=== PATIENT | female | born 1970 | race Caucasian/White ===

== ENCOUNTER → 2017-08-04 | Outpatient (CLI) | payer OTHER ==
--- NOTE | 2017-08-04 13:15 | DIAGNOSTIC IMAGING REPORT ---
CHEST 2 VIEWS ROUTINE HISTORY: 47 years-old Female DESCRIPTION AND INFLUENZA acute chest tightness with influenza COMPARISON: Chest radiograph 12/10/2012 TECHNIQUE: PA and lateral views of the chest FINDINGS: Cardiomediastinal and hilar silhouettes are within normal limits. There is no pneumothorax, pleural effusion, focal airspace consolidation or overt pulmonary edema. The bones of the chest appear grossly intact. IMPRESSION: No acute process. The above report was generated using voice recognition software. It may contain grammatical, syntax or spelling errors. Electronically signed by: Nathen Medellin M.D. 08/04/2017 1:13 PM Dictated Date/Time: 08/04/2017 1:12 PM
== END | disposition home or self-care (01) ==
LOC: C.RAD 12:41
PROVIDERS: ATTEND Family Medicine
DX: J11.1 Influenza due to unidentified influenza virus with other respiratory manifestations (principal)

== ENCOUNTER 2021-12-14 16:42 | Inpatient (IN) ==
[2021-12-14] MEDS ORDERED: SODIUM CHLORIDE 0.9% 1000ML 1,000 ML IV STA (17:04)
[2021-12-14] MEDS ORDERED: MoRPHine SULFATE 4 MG/ML 1 ML CARP\\VIAL IV STA (17:04)
[2021-12-14] MEDS ORDERED: ONDANSETRON INJ 2 MG/ML 2 ML VIAL IV STA (17:04)
--- NOTE | 2021-12-14 17:09 | Emergency Department Note ---
Impression & Plan Lower abdominal pain, Rectal bleeding, Colitis ED Provider Note NAME: MICHAEL PENALOZA AGE: 51 SEX: F : 1970 ARRIVES VIA: Walk-In INFORMANT: [Patient][family] ED PROVIDER(S): [Sahil Buckley MD] CHIEF COMPLAINT: GI bleeding HISTORY OF PRESENT ILLNESS: Patient is a 51-year-old female who presents with abdominal pain and rectal bleeding. She states that around 14 hours ago, she awoke with abdominal cramping. The pain was as bad as a 7/10. It was diffuse and radiated to the back. About an hour later she had a bowel movement that was soft. Since the first bowel movement, she has had BMs that have just been blood. She has gone multiple times today. She continues with the abdominal cramping. She feels nauseated and did actually take a Compazine today to help with the nausea. She has had some urinary urgency/frequency but no burning. There has been no fever, chills, cough or congestion. No shortness of breath. No recent antibiotic use. No sick contacts or suspicious food eaten. The patient has never had a colonoscopy, she is scheduled this year in April for her first. REVIEW OF SYSTEMS: See HPI for pertinent positives and negatives. A total of ten systems were reviewed and were otherwise negative. PMHx/PSHx: See Below SOCIAL HISTORY: See Below. PHYSICAL EXAM: GENERAL: Patient is in no acute distress. HEENT: No acute trauma, normocephalic atraumatic, mucous membranes moist, no nasal congestion, no scleral icterus. NECK: No stridor, no adenopathy, no meningismus, trachea is midline. LUNGS: Clear to auscultation bilaterally, no wheeze, no rhonchi, breath sounds equal. HEART: Without murmurs gallops or rubs, regular rate and rhythm. ABDOMEN: Soft, moderately diffusely tender, bowel sounds positive, no peritonitis. EXTREMITIES: No cyanosis or edema, full range of motion of all the joints without pain or difficulty, no signs for acute trauma. NEUROLOGIC: Oriented x 3, no acute motor or sensory deficits, no focal weakness. SKIN: No rash, no jaundice, no diaphoresis. DIFFERENTIAL DIAGNOSIS: Diverticulosis, AVM, coagulopathy, colitis, inflammatory bowel disease, malignancy, Irasema-Rankin tear, esophagitis, peptic ulcer disease, variceal bleed, gastritis, epistaxis, fissure, hemorrhoids, as well as other pathologies. EMERGENCY DEPARTMENT COURSE/PROCEDURES: MEDICAL DECISION MAKING: There is no leukocytosis or worrisome anemia. There is a normal platelet count. No renal failure or significant electrolyte abnormality. Lactic acid level is not elevated making bowel ischemia less likely. There is no concerning liver enzyme elevation. No evidence for pancreatitis. Urinalysis does not show infection. COVID test was negative. Abdominal and pelvis CT shows a colitis. No bowel obstruction, no free air. The patient was ordered for stool bio fire testing, she has not yet been able to provide a sample. The patient received IV saline, she was given IV Zofran, IV morphine, she received IV Tylenol. The patient presents with rectal bleeding. She has colitis. This explains the rectal bleeding of course. The patient is going to be hospitalized. Her hemoglobin can be followed, hopefully, the bleeding will spontaneously resolve. Treatment may be adjusted based on her stool bio fire results. I spoke with the patient and case management. The on-call hospitalist was consulted. Past Med/Surg History Medical History (Updated 12/15/21 @ 01:16 by Sahil Buckley MD) Acute low back pain Anxiety (12/10/12) Arthritis Blood clot in vein IN LEFT JUGULAR AND LEFT ARM (REASON FOR ELIQUIS) RECENTLY DX Breast cancer RT (CHEMO TREATMENT) Cervical spinal stenosis Encounter for pre-operative examination HTN (hypertension) Hypertension Neuropathy Secondary amenorrhea Spinal stenosis (12/10/12) Temporomandibular joint disorder WEARS BITE GUARD Urinary incontinence Surgical History Family history of reaction to anesthesia FATHER-"MEAN WAKING UP AFTER ANESTHESIA" H/O breast biopsy RT History of vascular access device LEFT History of vascular access device right side after left discontinued due to clot [place] teeth removed Family History Father Hypertension Thyroid disorder Cancer bladder cancer Mother Hypertension Daughter No problems noted. Son No problems noted. 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 Other Information That Helps Us Care for You: No Feels Safe at Home: Yes Safety Concerns: Feels Safe At This Time Assistive Devices: Glasses Allergies Allergies Allergy/AdvReac Type Severity Reaction Status Date / Time Penicillins Allergy Intermediate HIVES A Verified 12/14/21 17:44 CHILD Home Meds Home Medications Medication Instructions Recorded Confirmed lisinopril 2.5 mg tablet 2.5 mg PO QAM 07/01/19 12/14/21 acetaminophen 500 mg tablet 1,000 mg PO Q6H PRN 12/14/21 12/14/21 (Tylenol Extra Strength) Results & Data (ED) Vital Signs Vital Signs - 24 hr 12/14/21 16:49 12/14/21 17:48 12/14/21 19:30 Temperature 36.5 C Temperature Source Temporal Artery Scan Pulse Rate 90 Pulse Rate [Finger] 71 62 Respiratory Rate 18 22 16 Respiratory Effort / Characteristics Non-Labored Non-Labored Spontaneous Respiratory Depth Normal Normal Respiratory Pattern Regular Blood Pressure 171/99 H Blood Pressure [Left Arm] 141/90 H 153/79 H Blood Pressure Mean 123 Blood Pressure Mean [Left Arm] 107 103 Blood Pressure Position [Left Arm] Lying Pulse Oximetry 99 98 99 Oxygen Delivery Method Room Air Room Air Room Air Sepsis Recent Fever Within 48 Hours No Sepsis New/Unexplained Change in Mental Status No Sepsis Action Taken by Nursing No Action Required Home Medications Current Medication List: was personally reviewed by me Laboratory Data Attestation: I reviewed the patient's lab results. Result diagrams: 12/14/21 17:34 12/14/21 17:34 Lab Results 12/14/21 12/14/21 12/14/21 Range/Units 17:05 17:15 17:34 WBC (4.8-10.8) K/uL RBC (4.2-5.4) M/uL Hgb (12.0-16.0) g/dL Hct (37-47) % MCV (80-100) fL MCH (25-34) pg MCHC (32-36) g/dL RDW Std Deviation (36.4-46.3) fL RDW Coeff of [place] (11.5-14.5) % Plt Count (130-400) K/uL MPV (7.4-10.4) fL Immature Gran % (Auto) % Neut % (Auto) % Lymph % (Auto) % Wise % (Auto) % Eos % (Auto) % Baso % (Auto) % Neut # (Auto) (1.4-6.5) K/uL Lymph # (Auto) (1.2-3.4) K/uL Wise # (Auto) (0.11-0.59) K/uL Eos # (Auto) (0-0.5) K/uL Baso # (Auto) (0-0.2) K/uL Immature Gran # (Auto) (0.00-0.02) K/uL Sodium (136-145) mmol/L Potassium (3.5-5.1) mmol/L Chloride (98-107) mmol/L Carbon Dioxide (21-32) mmol/L Anion Gap (3-11) BUN (6-23) mg/dl Creatinine (0.6-1.2) mg/dl Est Cr Clr Drug Dosing ml/min Est GFR ( Amer) ml/min Est GFR (Non-Af Amer) ml/min BUN/Creatinine Ratio (10-20) Glucose (70-99(Fasting)) mg/dl Lactate (0.4-2.0) mmol/L Calcium (8.5-10.1) mg/dl Total Bilirubin (0.2-1.0) mg/dl AST (13-39) U/L ALT (7-52) U/L Alkaline Phosphatase (34-104) U/L Total Protein (6.0-8.3) gm/dl Albumin (3.4-5.0) gm/dl Globulin (2.5-4.0) gm/dl Albumin/Globulin Ratio (0.9-2) Lipase (11-82) U/L Urine Color Yellow Urine Appearance Clear (Clear) Urine pH 5.0 (4.5-7.5) Ur Specific [place] 1.006 (1.000-1.030) Urine Protein Negative (Negative) Urine Glucose (UA) Negative (Negative) Urine Ketones Negative (Negative) Urine Blood 1+ H (Negative) Urine Nitrite Negative (Negative) Urine Bilirubin Negative (Negative) Urine Urobilinogen Negative (Negative) Ur Leukocyte Esterase Negative (Negative) Urine WBC (Auto) 0 (0-5) /hpf Urine RBC (Auto) 0-4 (0-4) /hpf U Hyaline Cast (Auto) 0 (0-5) /lpf U Epithel Cells (Auto) 0-5 (0-5) /lpf Urine Bacteria (Auto) Negative (Negative) SARS-CoV-2, RNA, NAAT NEGATIVE (NEGATIVE) Blood Type B Positive Antibody Screen NEGATIVE 12/14/21 12/14/21 12/14/21 Range/Units 17:34 17:34 17:34 WBC 10.62 (4.8-10.8) K/uL RBC 4.99 (4.2-5.4) M/uL Hgb 14.4 (12.0-16.0) g/dL Hct 44.3 (37-47) % MCV 88.8 (80-100) fL MCH 28.9 (25-34) pg MCHC 32.5 (32-36) g/dL RDW Std Deviation 47.3 H (36.4-46.3) fL RDW Coeff of [place] 14.6 H (11.5-14.5) % Plt Count 281 (130-400) K/uL MPV 11.7 H (7.4-10.4) fL Immature Gran % (Auto) 0.2 % Neut % (Auto) 72.7 % Lymph % (Auto) 16.2 % Wise % (Auto) 9.8 % Eos % (Auto) 0.8 % Baso % (Auto) 0.3 % Neut # (Auto) 7.73 H (1.4-6.5) K/uL Lymph # (Auto) 1.72 (1.2-3.4) K/uL Wise # (Auto) 1.04 H (0.11-0.59) K/uL Eos # (Auto) 0.08 (0-0.5) K/uL Baso # (Auto) 0.03 (0-0.2) K/uL Immature Gran # (Auto) 0.02 (0.00-0.02) K/uL Sodium 140 (136-145) mmol/L Potassium 3.7 (3.5-5.1) mmol/L Chloride 105 (98-107) mmol/L Carbon Dioxide 26 (21-32) mmol/L Anion Gap 9 (3-11) BUN 13 (6-23) mg/dl Creatinine 1.05 (0.6-1.2) mg/dl Est Cr Clr Drug Dosing 80.8 ml/min Est GFR ( Amer) 72.2 ml/min Est GFR (Non-Af Amer) 62.3 ml/min BUN/Creatinine Ratio 12.4 (10-20) Glucose 98 (70-99(Fasting)) mg/dl Lactate 1.1 (0.4-2.0) mmol/L Calcium 10.2 H (8.5-10.1) mg/dl Total Bilirubin 0.6 (0.2-1.0) mg/dl AST 21 (13-39) U/L ALT 22 (7-52) U/L Alkaline Phosphatase 101 (34-104) U/L Total Protein 7.8 (6.0-8.3) gm/dl Albumin 4.9 (3.4-5.0) gm/dl Globulin 2.9 (2.5-4.0) gm/dl Albumin/Globulin Ratio 1.7 (0.9-2) Lipase 23 (11-82) U/L Urine Color Urine Appearance (Clear) Urine pH (4.5-7.5) Ur Specific [place] (1.000-1.030) Urine Protein (Negative) Urine Glucose (UA) (Negative) Urine Ketones (Negative) Urine Blood (Negative) Urine Nitrite (Negative) Urine Bilirubin (Negative) Urine Urobilinogen (Negative) Ur Leukocyte Esterase (Negative) Urine WBC (Auto) (0-5) /hpf Urine RBC (Auto) (0-4) /hpf U Hyaline Cast (Auto) (0-5) /lpf U Epithel Cells (Auto) (0-5) /lpf Urine Bacteria (Auto) (Negative) SARS-CoV-2, RNA, NAAT (NEGATIVE) Blood Type Antibody Screen Administered Medications Dextrose/Sodium Chloride (D5w And 1/2nss) 1,000 mls @ 125 mls/hr IV .Q8H BARRETT Stop: 01/13/22 22:30 Last Admin: 12/14/21 23:25 Dose: 125 mls/hr Documented by: [id number] Famotidine 20 mg/ Syringe 5 mls @ 2.5 mls/min IV BID BARRETT Stop: 01/13/22 22:30 Last Admin: 12/14/21 23:25 Dose: 2.5 mls/min Documented by: [id number] Discontinued Medications Acetaminophen (Acetaminophen 1000 Mg/100 Ml Iv) 1,000 mg IV NOW STA Stop: 12/14/21 19:57 Last Admin: 12/14/21 20:01 Dose: 1,000 mg Documented by: [id number] Sodium Chloride (Nss 1000ml) 1,000 mls @ 999 mls/hr IV .Q1H1M STA Stop: 12/14/21 18:04 Last Infusion: 12/14/21 18:47 Dose: 0 mls/hr Documented by: [id number] Admin: 12/14/21 17:42 Dose: 999 mls/hr Documented by: [id number] Ioversol (Optiray 320 100ml) 94 ml IV ONCE ONE Stop: 12/14/21 18:50 Last Admin: 12/14/21 18:49 Dose: 94 ml Documented by: [id number] Morphine Sulfate (Morphine Sulfate 4 Mg/Ml 1 Ml Carp\\Vial) 4 mg IV NOW STA Stop: 12/14/21 17:05 Last Admin: 12/14/21 17:44 Dose: 4 mg Documented by: [id number] Ondansetron HCl (Ondansetron Inj 2 Mg/Ml 2 Ml Vial) 4 mg IV NOW STA Stop: 12/14/21 17:05 Last Admin: 12/14/21 17:43 Dose: 4 mg Documented by: [id number] Imaging Data Radiologist's Impression: Abdomen/Pelvis CT 12/14/21 17:[address] WITH IV CONTRAST CT DOSE: 1174.33 mGy.cm HISTORY: lower abd pain, bleeding rectally TECHNIQUE: Multiaxial CT images of the abdomen and pelvis were performed following the use of intravenous contrast. A dose lowering technique was utilized adhering to the principles of ALARA. COMPARISON STUDY: Abdomen and pelvis CT 11/05/2021. FINDINGS: The lung bases are clear. No pneumoperitoneum. No pneumatosis. No fractures within the visualized osseous structures. [id number] circumferential thickening within the sigmoid colon with mild pericolonic fat stranding. This is consistent with a nonspecific colitis. No perforation or abscess identified. No evidence for bowel obstruction. Normal appendix. The major mesenteric vessels appear patent. Hepatic steatosis. The gallbladder, pancreas, spleen, adrenal glands, and kidneys are unremarkable. Degenerative changes noted within the lumbar spine. A 4 mm nodule within the left upper quadrant on image 134 remains stable. This favors a small accessory spleen. Normal caliber abdominal aorta. Trace pelvic free fluid. The bladder, uterus, bilateral adnexa are unremarkable. IMPRESSION: Mild to moderate circumferential thickening of the sigmoid colon with mild pericolonic fat stranding. This is consistent with a nonspecific colitis. This favors an infectious or inflammatory process. ACT 112: Negative or not required by law. Electronically signed by: Michael Cantu M.D. 12/14/2021 7:33 PM Discharge Plan Visit Data Chief Complaint: GI Bleed Stated Complaint: BLOOD IN URINE, BACK PAIN ED Provider: Sahil Buckley Discharge Problem: Lower abdominal pain, Rectal bleeding, Colitis Patient Disposition: Admitted As Inpatient Condition: Fair Discharge Instructions Interventions: ED Discharge Assessment Last Done: 12/14/21 21:45
[2021-12-14 17:27] LABS: Appearance Urine Clear (Clear); Bacteria Urine Automated Negative (Negative); Bilirubin Urine Negative (Negative); Blood Urine 1+ (Negative); Cast Urine Automated 0 /lpf (0-5); Color Urine Yellow; Epithelial Cell Urine Auto 0-5 /lpf (0-5); Glucose Urine UA Negative (Negative); Ketones Urine Negative (Negative); Leukocyte Esterase Urine Negative (Negative); Nitrite Urine Negative (Negative); Protein Urine Negative (Negative); RBC Urine Automated 0-4 /hpf (0-4); Specific Gravity Urine 1.006 (1.000-1.030); Urobilinogen Urine Negative (Negative); WBC Urine Automated 0 /hpf (0-5)
[2021-12-14 17:48] LABS: Basophils # (auto) 0.03 K/uL (0-0.2); Basophils % (auto) 0.3 %; Eosinophils # (auto) 0.08 K/uL (0-0.5); Eosinophils % (auto) 0.8 %; Hematocrit (blood only) 44.3 % (37-47); Hemoglobin 14.4 g/dL (12.0-16.0); Immature Granulocytes # (auto) 0.02 K/uL (0.00-0.02); Immature Granulocytes % (auto) 0.2 %; Lymphocytes # (auto) 1.72 K/uL (1.2-3.4); Lymphocytes % (auto) 16.2 %; Mean Corpuscular Hemoglobin 28.9 pg (25-34); Mean Corpuscular Hgb Conc 32.5 g/dL (32-36); Mean Corpuscular Volume 88.8 fL (80-100); Mean Platelet Volume 11.7 fL (7.4-10.4); Monocytes # (auto) 1.04 K/uL (0.11-0.59); Monocytes % (auto) 9.8 %; Neutrophils # (auto) 7.73 K/uL (1.4-6.5); Neutrophils % (auto) 72.7 %; Platelet Count 281 K/uL (130-400); RDW Coefficient of Variation 14.6 % (11.5-14.5); RDW Standard Deviation 47.3 fL (36.4-46.3); Red Blood Count 4.99 M/uL (4.2-5.4); White Blood Count 10.62 K/uL (4.8-10.8)
[2021-12-14 18:07] LABS: Albumin Globulin Ratio 1.7 (0.9-2); Albumin Level 4.9 gm/dl (3.4-5.0); BUN Creatinine Ratio 12.4 (10-20); Bilirubin,Total 0.6 mg/dl (0.2-1.0); Calcium 10.2 mg/dl (8.5-10.1); Creatinine Clr Calc Pharmacy 80.8 ml/min; Est GFR (African American) 72.2 ml/min; Est GFR (Non-African American) 62.3 ml/min; Globulin 2.9 gm/dl (2.5-4.0); Potassium 3.7 mmol/L (3.5-5.1); Total Protein 7.8 gm/dl (6.0-8.3)
[2021-12-14] MEDS ORDERED: OPTIRAY 320 100ml IV ONE (18:49)
--- NOTE | 2021-12-14 19:36 | CT Scan Report ---
ABDOMEN AND PELVIS CT WITH IV CONTRAST CT DOSE: 1174.33 mGy.cm HISTORY: lower abd pain, bleeding rectally TECHNIQUE: Multiaxial CT images of the abdomen and pelvis were performed following the use of intrave nous contrast. A dose lowering technique was utilized adhering to the principles of ALARA. COMPARISON STUDY: Abdomen and pelvis CT 11/05/2021. FINDINGS: The lung bases are clear. No pneumoperitoneum. No pneumatosis. No fractures within the visu alized osseous structures. [id number] circumferential thickening within the sigmoid colon with mild pericolonic fat stranding. This is consistent with a nonspecific colitis. No perforation or absc ess identified. No evidence for bowel obstruction. Normal appendix. The major mesenteric vessels appe ar patent. Hepatic steatosis. The gallbladder, pancreas, spleen, adrenal glands, and kidneys are unre markable. Degenerative changes noted within the lumbar spine. A 4 mm nodule within the left upper yared drant on image 134 remains stable. This favors a small accessory spleen. Normal caliber abdominal aor ta. Trace pelvic free fluid. The bladder, uterus, bilateral adnexa are unremarkable. IMPRESSION: Mild to moderate circumferential thickening of the sigmoid colon with mild pericolonic fat stranding. This is consistent with a nonspecific colitis. This favors an infectious or inflammatory process. ACT 112: Negative or not required by law. Electronically signed by: Michael Cantu M.D. 12/14/2021 7:33 PM
[2021-12-14] MEDS ORDERED: ACETAMINOPHEN 1000 MG/100 ML IV IV STA (19:56)
[2021-12-14] MEDS ORDERED: hydrALAZINE HCL 20 MG/ML VIAL IV PRN (22:31)
[2021-12-14] MEDS ORDERED: ONDANSETRON INJ 2 MG/ML 2 ML VIAL IV PRN (22:31)
[2021-12-14] MEDS ORDERED: MoRPHine SULFATE 2 MG/ML CARP IV PRN (22:31)
[2021-12-14] MEDS ORDERED: NITROGLYCERIN SL 0.4 MG/TAB TAB SL PRN (22:31)
[2021-12-14] MEDS: FAMOTIDINE 20 MG in SYRINGE 3 ML IV SCH (23:25)
[2021-12-14] MEDS: D5W AND 1/2NSS 1,000 ML IV SCH (23:25)
--- NOTE | 2021-12-15 00:31 | History and Physical Report ---
DATE OF ADMISSION: 12/14/2021. CHIEF COMPLAINT: Rectal bleed. HISTORY OF PRESENT ILLNESS: This is a 51-year-old female with past medical history significant for hypertension, female stress incontinence, history of breast cancer, status post chemoradiation, surgery, in remission, presents with rectal bleed. The patient states since today morning she has four episodes of rectal bleed, shows picture seems to be a significant amount. Having lot of abdominal pain all over and has nausea. Did not feel like eating yesterday and today, no difficulty swallowing. No chest pain, no shortness of breath, no cough. No fever, has chills, no headache, no blurred visions, no dizziness, no earache, no runny nose, no sore throat, no rash. Normal bowel and bladder movements. Currently, resting comfortably and hemodynamically stable. Hemoglobin is 14.4 in the ER. The patient had similar episode last summer for about a day. ALLERGIES: TO PENICILLINS. PAST MEDICAL HISTORY: As mentioned above. PAST SURGICAL HISTORY: Biopsy of the right axillary lymph node, right partial mastectomy, radiation therapy, excision of pelvic hip subcutaneous tumor, ultrasound-guided breast biopsy of the right side. MEDICATIONS: The patient on Tylenol Extra Strength as needed and lisinopril 2.5 mg p.o. a.m. FAMILY HISTORY: Significant for father has arthritis, bladder cancer, hypertension and thyroid disorder. Mother has hypertension, IBS. Paternal aunt has ankylosing spondylitis. SOCIAL HISTORY: , no smoking or alcohol. Occasional drug use. REVIEW OF SYSTEMS: As per HPI. Rest of review of systems is negative. PHYSICAL EXAMINATION: GENERAL: The patient is obese, not in acute distress. VITAL SIGNS: Temperature 36.5, pulse 62, respirations 16, blood pressure 153/79, oxygen 99% on room air. HEENT: Pupils equal, round and reactive to light. Oral mucosa moist. NECK: No JVD. No neck masses. CARDIOVASCULAR: S1 and S2 heard. Regular rate and rhythm. No murmur, no gallop. RESPIRATORY SYSTEM: Normal AP diameter. No accessory muscle use. No wheezing, no crackles. ABDOMEN: Soft. Bowel sounds present. Mild diffuse discomfort. No guarding, no rigidity. CENTRAL NERVOUS SYSTEM: Cranial nerves II through XII are grossly nonfocal. EXTREMITIES: No edema, no erythema. LABORATORY: WBC 10.6, hemoglobin 14.4, hematocrit 44.3, platelets 281. Sodium 140, potassium 3.7, chloride 105, bicarbonate 26, BUN 13, creatinine 1.05. Serum glucose 98, lactate 1.1, calcium 10.2, total bilirubin 0.6, AST 21, ALT 22, alkaline phosphatase 101. Lipase 23. Urinalysis: Plus 1 blood. SARS-CoV-2 rapid test negative. IMAGING: CT of abdomen and pelvis, mild to moderate circumferential thickening of the sigmoid colon with mild pericolonic fat stranding. This is consistent with nonspecific colitis, favors an infectious and inflammatory process. ASSESSMENT AND PLAN: This 51-year-old female presents with rectal bleeding and abdominal discomfort. 1. Abdominal discomfort with rectal bleed, four episodes today, hemoglobin is stable, hemodynamically stable, had similar episode last December. CAT scan is showing nonspecific colitis. Will admit to the hospital. Blood consent obtained. H and H q.6 hours, n.p.o., IV fluids, IV morphine p.r.n., IV Pepcid 20 b.i.d. and GI consult for further recommendations. 2. History of hypertension. Hold lisinopril for now. Place on IV hydralazine p.r.n. 3. History of breast cancer, status post chemo surgery and radiation, in remission. Follows with hem/onc. 4. Deep venous thrombosis prophylaxis: SCDs for now. DISPOSITION: Closely monitor in the med tele. PT/OT prior to discharge. Social Service to help with discharge planning. Job ID: [id number]
[2021-12-15] MEDS: ACETAMINOPHEN 325 MG TAB PO PRN ×2 (04:53→21:15)
[2021-12-15 05:43] LABS: Basophils # (auto) 0.03 K/uL (0-0.2); Basophils % (auto) 0.4 %; Eosinophils % (auto) 1.3 %; Hematocrit (blood only) 40.3 % (37-47); Hemoglobin 13.1 g/dL (12.0-16.0); Immature Granulocytes # (auto) 0.02 K/uL (0.00-0.02); Immature Granulocytes % (auto) 0.3 %; Lymphocytes # (auto) 1.82 K/uL (1.2-3.4); Lymphocytes % (auto) 23.5 %; Mean Corpuscular Hgb Conc 32.5 g/dL (32-36); Mean Corpuscular Volume 89.2 fL (80-100); Mean Platelet Volume 11.3 fL (7.4-10.4); Monocytes # (auto) 0.86 K/uL (0.11-0.59); Monocytes % (auto) 11.1 %; Neutrophils # (auto) 4.93 K/uL (1.4-6.5); Neutrophils % (auto) 63.4 %; Platelet Count 233 K/uL (130-400); RDW Coefficient of Variation 14.9 % (11.5-14.5); RDW Standard Deviation 48.1 fL (36.4-46.3); Red Blood Count 4.52 M/uL (4.2-5.4); White Blood Count 7.76 K/uL (4.8-10.8)
[2021-12-15 05:53] LABS: Partial Thromboplastin Ratio 0.9; Partial Thromboplastin Time 24.5 Seconds (21.0-31.0); Prothrombin Time 10.7 Seconds (9.0-12.0)
[2021-12-15 06:03] LABS: BUN Creatinine Ratio 10.6 (10-20); Creatinine Clr Calc Pharmacy 90.4 ml/min; Est GFR (African American) 82.6 ml/min; Est GFR (Non-African American) 71.2 ml/min; Magnesium 1.8 mg/dl (1.7-2.4); Potassium 3.4 mmol/L (3.5-5.1)
[2021-12-15] MEDS: D5W AND 1/2NSS 1,000 ML IV SCH ×3 (07:46→23:30)
[2021-12-15] MEDS ORDERED: POTASSIUM CHLORIDE CRTAB 20 MEQ TABCR PO STA (07:58)
--- NOTE | 2021-12-15 09:44 | Gastrointestinal Consultation ---
Date of Consultation December 15, 2021 Assessment & Plan (1) Ischemic colitis: 51-year-old female presenting with signs and symptoms most consistent with ischemic colitis. It is reassuring that her hemoglobin and hematocrit have not changed significantly from baseline nor does the patient have a leukocytosis. I would recommend screening for C. difficile and bacterial cultures to look for occult infection. The treatment for this is generally conservative with IV hydration and advancing diet as tolerated. We would recommend an outpatient colonoscopy in 6 to 8 weeks to ensure resolution and screen for other issues such as colonic polyps or unexpected colon masses. Recommendations Stool for C. difficile and culture sent Continue with IV hydration while an inpatient Advance diet as tolerated Outpatient colonoscopy in 6 to 8 weeks If patient doing well this afternoon or evening you could consider discharge or perhaps discharge on Thursday morning Call with any questions or concerns GI to sign off History of Present Illness Reason for Consultation: Hematochezia Requesting Physician: Dr. Murrell Attending Physician: Juan Carlos Murrell MD History of Present Illness This is a 51-year-old female with past medical history significant for hypertension, female stress incontinence, history of breast cancer, status post chemoradiation, surgery, in remission, presents with rectal bleeding. She awoke suddenly around 3 in the morning with a diffuse cramping-like sensation in her abdomen. This was followed by passage of a large amount of stool without any form and finally passage of a large amount of blood on 4 different occasions. She notes that this morning that her symptoms are much improved that she had a small bowel movement this morning with only small amount of blood within it. She recalls she did have a similar episode about 1 year ago but did not seek medical therapy for this. As noted above the patient's history is notable for breast cancer, no recent courses of antibiotics, no abdominal surgery, no history of colon cancer, no history of IBD no family history of colon or stomach cancer . Allergies Allergy/AdvReac Type Severity Reaction Status Date / Time Penicillins Allergy Intermediate HIVES A Verified 12/14/21 17:44 CHILD Home Medications Medication Instructions Recorded Confirmed Type lisinopril 2.5 mg tablet 2.5 mg PO QAM 07/01/19 12/14/21 History acetaminophen 500 mg tablet 1,000 mg PO Q6H PRN 12/14/21 12/14/21 History (Tylenol Extra Strength) Patient History Medical History (Updated 12/15/21 @ 09:44 by Clara High DO) Acute low back pain Anxiety (12/10/12) Arthritis Blood clot in vein IN LEFT JUGULAR AND LEFT ARM (REASON FOR ELIQUIS) RECENTLY DX Breast cancer RT (CHEMO TREATMENT) Cervical spinal stenosis Encounter for pre-operative examination HTN (hypertension) Hypertension Neuropathy Secondary amenorrhea Spinal stenosis (12/10/12) Temporomandibular joint disorder WEARS BITE GUARD Urinary incontinence Surgical History Family history of reaction to anesthesia FATHER-"MEAN WAKING UP AFTER ANESTHESIA" H/O breast biopsy RT History of vascular access device LEFT History of vascular access device right side after left discontinued due to clot [place] teeth removed Family History Father Hypertension Thyroid disorder Cancer bladder cancer Mother Hypertension Daughter No problems noted. Son No problems noted. 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 Other Information That Helps Us Care for You: No Feels Safe at Home: Yes Safety Concerns: Feels Safe At This Time Assistive Devices: Glasses Review of Systems Constitutional: no fever, no sweats and no malaise Eyes: as per Subjective / HPI Ear, Nose, Mouth, Throat: no ear trauma and no hyperacusis Respiratory: no change in sputum and no hemoptysis Cardiovascular: no chest pain, no chest pain with activity and no dyspnea at rest Gastrointestinal: as per Subjective / HPI Genitourinary: + urinary urgency; no abnormal periods Musculoskeletal: no radicular pain Integumentary: no rash Neurologic: no falls Psychiatric: no hopelessness Endocrine: no polydipsia Hematologic / Lymphatic: no easy bleeding and no coagulopathy Physical Exam Constitutional: WD/WN, vitals as above Eyes: PERRL, conjunctivae normal, anicteric sclerae ENMT: external ear and nose normal, oropharynx normal Neck: trachea midline, no thyromegaly Respiratory: normal respiratory effort, lungs clear to auscultation Cardiovascular: Rate/Rhythm: regular rate and regular rhythm Gastrointestinal (Abdomen): Inspection/Auscultation: abdomen normal to inspection; abdomen not distended Skin: no rashes, warm and dry Neurologic: Speech / Cognition: normal speech Results & Data ([facility]) Vital Signs (Past 12 Hours) Vital Signs Temp Pulse Pulse Resp BP Pulse Ox Pulse Ox 12/15/21 08:27 36.5 C 85 18 136/74 96 12/15/21 02:45 36.6 C 67 18 110/69 98 12/14/21 22:31 36.8 C 78 18 141/85 H 99 99 12/14/21 22:16 75 12/14/21 22:03 36.8 C 78 18 141/85 H 99 Laboratory Results Laboratory Results - last 24 hr 12/14/21 12/14/21 12/14/21 17:05 17:15 17:34 WBC RBC Hgb Hct MCV MCH MCHC RDW Std Deviation RDW Coeff of Troy Plt Count MPV Immature Gran % (Auto) Neut % (Auto) Lymph % (Auto) Geary % (Auto) Eos % (Auto) Baso % (Auto) Neut # (Auto) Lymph # (Auto) Geary # (Auto) Eos # (Auto) Baso # (Auto) Immature Gran # (Auto) PT INR APTT PTT Ratio Sodium Potassium Chloride Carbon Dioxide Anion Gap BUN Creatinine Est Cr Clr Drug Dosing Est GFR ( Amer) Est GFR (Non-Af Amer) BUN/Creatinine Ratio Glucose Lactate Calcium Magnesium Total Bilirubin AST ALT Alkaline Phosphatase Total Protein Albumin Globulin Albumin/Globulin Ratio Lipase Urine Color Yellow Urine Appearance Clear Urine pH 5.0 Ur Specific Davis 1.006 Urine Protein Negative Urine Glucose (UA) Negative Urine Ketones Negative Urine Blood 1+ H Urine Nitrite Negative Urine Bilirubin Negative Urine Urobilinogen Negative Ur Leukocyte Esterase Negative Urine WBC (Auto) 0 Urine RBC (Auto) 0-4 U Hyaline Cast (Auto) 0 U Epithel Cells (Auto) 0-5 Urine Bacteria (Auto) Negative SARS-CoV-2, RNA, NAAT NEGATIVE Blood Type B Positive Antibody Screen NEGATIVE 12/14/21 12/14/21 12/14/21 17:34 17:34 17:34 WBC 10.62 RBC 4.99 Hgb 14.4 Hct 44.3 MCV 88.8 MCH 28.9 MCHC 32.5 RDW Std Deviation 47.3 H RDW Coeff of Troy 14.6 H Plt Count 281 MPV 11.7 H Immature Gran % (Auto) 0.2 Neut % (Auto) 72.7 Lymph % (Auto) 16.2 Geary % (Auto) 9.8 Eos % (Auto) 0.8 Baso % (Auto) 0.3 Neut # (Auto) 7.73 H Lymph # (Auto) 1.72 Geary # (Auto) 1.04 H Eos # (Auto) 0.08 Baso # (Auto) 0.03 Immature Gran # (Auto) 0.02 PT INR APTT PTT Ratio Sodium 140 Potassium 3.7 Chloride 105 Carbon Dioxide 26 Anion Gap 9 BUN 13 Creatinine 1.05 Est Cr Clr Drug Dosing 80.8 Est GFR ( Amer) 72.2 Est GFR (Non-Af Amer) 62.3 BUN/Creatinine Ratio 12.4 Glucose 98 Lactate 1.1 Calcium 10.2 H Magnesium Total Bilirubin 0.6 AST 21 ALT 22 Alkaline Phosphatase 101 Total Protein 7.8 Albumin 4.9 Globulin 2.9 Albumin/Globulin Ratio 1.7 Lipase 23 Urine Color Urine Appearance Urine pH Ur Specific Davis Urine Protein Urine Glucose (UA) Urine Ketones Urine Blood Urine Nitrite Urine Bilirubin Urine Urobilinogen Ur Leukocyte Esterase Urine WBC (Auto) Urine RBC (Auto) U Hyaline Cast (Auto) U Epithel Cells (Auto) Urine Bacteria (Auto) SARS-CoV-2, RNA, NAAT Blood Type Antibody Screen 12/15/21 12/15/21 12/15/21 05:20 05:20 05:20 WBC 7.76 RBC 4.52 Hgb 13.1 Hct 40.3 MCV 89.2 MCH 29.0 MCHC 32.5 RDW Std Deviation 48.1 H RDW Coeff of Troy 14.9 H Plt Count 233 MPV 11.3 H Immature Gran % (Auto) 0.3 Neut % (Auto) 63.4 Lymph % (Auto) 23.5 Geary % (Auto) 11.1 Eos % (Auto) 1.3 Baso % (Auto) 0.4 Neut # (Auto) 4.93 Lymph # (Auto) 1.82 Geary # (Auto) 0.86 H Eos # (Auto) 0.10 Baso # (Auto) 0.03 Immature Gran # (Auto) 0.02 PT 10.7 INR 1.0 APTT 24.5 PTT Ratio 0.9 Sodium 140 Potassium 3.4 L Chloride 109 H Carbon Dioxide 24 Anion Gap 7 BUN 10 Creatinine 0.94 Est Cr Clr Drug Dosing 90.4 Est GFR ( Amer) 82.6 Est GFR (Non-Af Amer) 71.2 BUN/Creatinine Ratio 10.6 Glucose 113 H Lactate Calcium 9.0 Magnesium 1.8 Total Bilirubin AST ALT Alkaline Phosphatase Total Protein Albumin Globulin Albumin/Globulin Ratio Lipase Urine Color Urine Appearance Urine pH Ur Specific Davis Urine Protein Urine Glucose (UA) Urine Ketones Urine Blood Urine Nitrite Urine Bilirubin Urine Urobilinogen Ur Leukocyte Esterase Urine WBC (Auto) Urine RBC (Auto) U Hyaline Cast (Auto) U Epithel Cells (Auto) Urine Bacteria (Auto) SARS-CoV-2, RNA, NAAT Blood Type Antibody Screen Diagnostic Findings ABDOMEN AND PELVIS CT WITH IV CONTRAST CT DOSE: 1174.33 mGy.cm HISTORY: lower abd pain, bleeding rectally TECHNIQUE: Multiaxial CT images of the abdomen and pelvis were performed following the use of intravenous contrast. A dose lowering technique was utilized adhering to the principles of ALARA. COMPARISON STUDY: Abdomen and pelvis CT 11/05/2021. FINDINGS: The lung bases are clear. No pneumoperitoneum. No pneumatosis. No fractures within the visualized osseous structures. [id number] circumferential thickening within the sigmoid colon with mild pericolonic fat st randing. This is consistent with a nonspecific colitis. No perforation or abscess identified. No evidence for bowel obstruction. Normal appendix. The major mesenteric vessels appear patent. Hepatic steatosis. The gallbladder, pancreas, spleen, adrenal glands, and kidneys are unremarkable. Degenerative changes noted within the lumbar spine. A 4 mm nodule within the left upper quadrant on image 134 remains stable. This favors a small accessory spleen. Normal caliber abdominal aorta. Trace pelvic free fluid. The bladder, uterus, bilateral adnexa are unremarkable. IMPRESSION: Mild to moderate circumferential thickening of the sigmoid colon with mild pericolonic fat stranding. This is consistent with a nonspecific colitis. This favors an infectious or inflammatory process.
[2021-12-15] MEDS: FAMOTIDINE 20 MG in SYRINGE 3 ML IV SCH ×2 (09:56→21:17)
[2021-12-15 11:37] LABS: Hematocrit (blood only) 40.1 % (37-47); Hemoglobin 12.9 g/dL (12.0-16.0)
--- NOTE | 2021-12-15 14:00 | Electrocardiogram Report ---
Test Reason : Blood Pressure : / mmHG Vent. Rate : 057 BPM Atrial Rate : 057 BPM P-R Int : 146 ms QRS Dur : 092 ms QT Int : 442 ms P-R-T Axes : 072 052 025 degrees QTc Int : 430 ms Sinus bradycardia Otherwise normal ECG When compared with ECG of 06-MAY-2020 19:28, No significant change was found Confirmed by Rock Carter ([id number]) on 12/15/2021 1:59:54 PM Referred By: REFERRED SELF Confirmed By:Rock Carter
[2021-12-15] MEDS ORDERED: ACETAMINOPHEN 325 MG TAB PO STA (15:16)
[2021-12-15 17:12] LABS: Hematocrit (blood only) 40.2 % (37-47); Hemoglobin 12.9 g/dL (12.0-16.0)
[2021-12-16 07:36] VITALS: BP 130/78; PULSE 69; TEMP 97.7; O2SAT 96
--- NOTE | 2021-12-16 07:44 | Hospitalist Progress Note ---
Date of Service December 16, 2021 delayed entry date of service noted above Assessment & Plan (1) Ischemic colitis: (2) Lower abdominal pain: (3) Rectal bleeding: Plan: ASSESSMENT AND PLAN: This 51-year-old female presents with rectal bleeding and abdominal discomfort. 1. Ischemic Colitis -- CT abdomen/pelvis: Mild to moderate circumferential thickening of the sigmoid colon with mild pericolonic fat stranding. This is consistent with a nonspecific colitis. This favors an infectious or inflammatory process. -- patient only had 1 small bloody stools while admitted Hg remained stable at ~13 not able to provide stool specimen for stool PCR studies -- given IV fluids, placed on bowel rest -- GI consulted- Dr. High recommend Colonoscopy in 6-8 weeks -- recommend to HOLD Lisinopril to prevent hypotension ff up with PCP in 1 week 2. History of hypertension. Hold lisinopril as BP stable ff up with PCP 3. History of breast cancer, status post chemo surgery and radiation, in remission. -- Follows with hem/onc. plan of care discussed with patient in detail and at length all questions answered she is understanding, agreeable, comfortable with the plan of care Admission and Anticipated Discharge Date Admission Date: December 14, 2021 Subjective ff up for acute colitis, etc seen resting in chair, comfortable states she feels much better overall no melena/hematochezia since admission, last BM , morning the day before, small, formed, minimal blood noted no abdominal pain, nausea/vomiting, fever/chills no chest pain, dyspnea, palpitations, dizziness no other symptoms states she is ready and would like to be discharged Physical Exam Physical Exam: General- oriented x 3, not in distress, speaks in sentences with no effort or accessory muscle use Eyes- anicteric Neck- no JVD Lungs- clear breath sounds bilaterally, no rales/wheezes Heart- normal rate, regular rhythm; no murmurs Abdomen- normal bowel sounds, nondistended, soft, nontender Extremities- no pretibial edema, no calf tenderness Neuro- alert, oriented x 3; no gross focal neurologic deficits Skin- warm & dry Results & Data Results & Data ([facility]) Vital Signs (Past 12 Hours) Vital Signs Temp Pulse Pulse Resp BP BP Pulse Ox 12/16/21 07:35 36.5 C 69 15 130/78 96 12/16/21 03:01 36.6 C 66 18 99/63 L 95 12/16/21 01:51 59 L 12/15/21 23:40 36.8 C 80 18 116/71 96 12/15/21 19:50 36.9 C 67 18 144/83 H 92
[2021-12-16] MEDS: D5W AND 1/2NSS 1,000 ML IV SCH (08:06)
[2021-12-16 08:08] LABS: Hematocrit (blood only) 40.1 % (37-47); Hemoglobin 12.8 g/dL (12.0-16.0); Mean Corpuscular Hemoglobin 28.8 pg (25-34); Mean Corpuscular Hgb Conc 31.9 g/dL (32-36); Mean Corpuscular Volume 90.3 fL (80-100); Platelet Count 238 K/uL (130-400); RDW Coefficient of Variation 14.7 % (11.5-14.5); RDW Standard Deviation 48.8 fL (36.4-46.3); Red Blood Count 4.44 M/uL (4.2-5.4)
[2021-12-16 08:26] LABS: Basophils # (auto) 0.03 K/uL (0-0.2); Basophils % (auto) 0.6 %; Eosinophils # (auto) 0.11 K/uL (0-0.5); Eosinophils % (auto) 2.1 %; Immature Granulocytes # (auto) 0.01 K/uL (0.00-0.02); Immature Granulocytes % (auto) 0.2 %; Lymphocytes # (auto) 2.01 K/uL (1.2-3.4); Lymphocytes % (auto) 38.7 %; Monocytes # (auto) 0.63 K/uL (0.11-0.59); Monocytes % (auto) 12.1 %; Neutrophils # (auto) 2.41 K/uL (1.4-6.5); Neutrophils % (auto) 46.3 %
[2021-12-16 08:27] LABS: BUN Creatinine Ratio 5.4 (10-20); Calcium 9.2 mg/dl (8.5-10.1); Creatinine Clr Calc Pharmacy 91.3 ml/min; Est GFR (African American) 83.6 ml/min; Est GFR (Non-African American) 72.2 ml/min; Potassium 4.2 mmol/L (3.5-5.1)
[2021-12-16] MEDS: FAMOTIDINE 20 MG in SYRINGE 3 ML IV SCH (08:41)
--- NOTE | 2021-12-19 12:33 | Discharge Summary ---
Date of Service December 19, 2021 delayed entry date of service December 16, 2021 Admission HPI Per Admitting Provider HISTORY OF PRESENT ILLNESS: This is a 51-year-old female with past medical history significant for hypertension, female stress incontinence, history of breast cancer, status post chemoradiation, surgery, in remission, presents with rectal bleed. The patient states since today morning she has four episodes of rectal bleed, shows picture seems to be a significant amount. Having lot of abdominal pain all over and has nausea. Did not feel like eating yesterday and today, no difficulty swallowing. No chest pain, no shortness of breath, no cough. No fever, has chills, no headache, no blurred visions, no dizziness, no earache, no runny nose, no sore throat, no rash. Normal bowel and bladder movements. Currently, resting comfortably and hemodynamically stable. Hemoglobin is 14.4 in the ER. The patient had similar episode last summer for about a day. ALLERGIES: TO PENICILLINS. Admission Exam Per Admitting Provider GENERAL: The patient is obese, not in acute distress. VITAL SIGNS: Temperature 36.5, pulse 62, respirations 16, blood pressure 153/79, oxygen 99% on room air. HEENT: Pupils equal, round and reactive to light. Oral mucosa moist. NECK: No JVD. No neck masses. CARDIOVASCULAR: S1 and S2 heard. Regular rate and rhythm. No murmur, no gallop. RESPIRATORY SYSTEM: Normal AP diameter. No accessory muscle use. No wheezing, no crackles. ABDOMEN: Soft. Bowel sounds present. Mild diffuse discomfort. No guarding, no rigidity. CENTRAL NERVOUS SYSTEM: Cranial nerves II through XII are grossly nonfocal. EXTREMITIES: No edema, no erythema. Principal Diagnosis RECTAL BLEEDING, LIKELY SECONDARY TO ISCHEMIC COLITIS Discharge Exam General- oriented x 3, not in distress, speaks in sentences with no effort or accessory muscle use Eyes- anicteric Neck- no JVD Lungs- clear breath sounds bilaterally, no rales/wheezes Heart- normal rate, regular rhythm; no murmurs Abdomen- normal bowel sounds, nondistended, soft, nontender Extremities- no pretibial edema, no calf tenderness Neuro- alert, oriented x 3; no gross focal neurologic deficits Skin- warm & dry Discharge Data Allergies Allergy/AdvReac Type Severity Reaction Status Date / Time Penicillins Allergy Intermediate HIVES A Verified 12/18/21 16:09 CHILD Consultations 12/14/21 20:07 ED Decision to Admit Stat 12/15/21 08:00 Consult Gastroenterology Routine Ordered Studies 12/14/21 17:04 CT abd pelvis IV con only Stat COMPARISON STUDY: Abdomen and pelvis CT 11/05/2021. FINDINGS: The lung bases are clear. No pneumoperitoneum. No pneumatosis. No fractures within the visualized osseous structures. [id number]-[id number] circumferential thickening within the sigmoid colon with mild pericolonic fat stranding. This is consistent with a nonspecific colitis. No perforation or abscess identified. No evidence for bowel obstruction. Normal appendix. The major mesenteric vessels appear patent. Hepatic steatosis. The gallbladder, pancreas, spleen, adrenal glands, and kidneys are unremarkable. Degenerative changes noted within the lumbar spine. A 4 mm nodule within the left upper quadrant on image 134 remains stable. This favors a small accessory spleen. Normal caliber abdominal aorta. Trace pelvic free fluid. The bladder, uterus, bilateral adnexa are unremarkable. IMPRESSION: Mild to moderate circumferential thickening of the sigmoid colon with mild pericolonic fat stranding. This is consistent with a nonspecific colitis. This favors an infectious or inflammatory process. ACT 112: Negative or not required by law. Electronically signed by: Michael Cantu M.D. 12/14/2021 7:33 PM Hospital Course (1) Ischemic colitis: (2) Lower abdominal pain: (3) Rectal bleeding: ASSESSMENT AND PLAN: This 51-year-old female presents with rectal bleeding and abdominal discomfort. 1. Ischemic Colitis -- CT abdomen/pelvis: Mild to moderate circumferential thickening of the sigmoid colon with mild pericolonic fat stranding. This is consistent with a nonspecific colitis. This favors an infectious or inflammatory process. -- patient only had 1 small bloody stools while admitted Hg remained stable at ~13 not able to provide stool specimen for stool PCR studies -- given IV fluids, placed on bowel rest -- GI consulted- Dr. High no further interventions recommended recommend Colonoscopy in 6-8 weeks -- recommend to HOLD Lisinopril to prevent hypotension ff up with PCP in 1 week 2. History of hypertension. Hold lisinopril as BP stable ff up with PCP 3. History of breast cancer, status post chemo surgery and radiation, in remission. -- Follows with hem/onc. plan of care discussed with patient in detail and at length all questions answered she is understanding, agreeable, comfortable with the plan of care Total Time Total Time Spent Total Time Spent (In Minutes): >30 minutes Discharge Plan Discharge Items Patient Disposition: Home - Self-Care Reason For Visit: RECTAL BLEED Discharge Diagnosis: BLOODY DIARRHEA, POSSIBLE ISCHEMIC COLITIS Activity: Resume your previous activity Non-emergency contact: Primary Care Provider Call non-emergency contact if: you have any medication questions, your symptoms worsen, your pain is not controlled, your pain is worsening, your pain is unusual for you, your pain is concerning for you and you have a fever Follow-up/Referrals: Jessica Schwartz, DO [Primary Care Provider] - Diet: Heart Healthy and Low Fiber Diet Comment: soft diet Addtl Attending Provider Instructions: Please discontinue Lisinopril. No NSAIDs- Ibuprofen, Naproxen, Aspirin, etc. Drink plenty of water. PLEASE CALL YOUR PRIMARY CARE PHYSICIAN OR RETURN TO THE ER IF WITH WORSENING OF SYMPTOMS, INCLUDING BLOODY STOOLS, ABDOMINAL PAIN, NAUSEA/VOMITING. FOLLOW UP WITH PRIMARY CARE PHYSICIAN IN [address]LLOW UP WITH DR. HIGH IN 2-3 WEEKS. OUTPATIENT COLONOSCOPY IN 6-8 WEEKS Pending Studies at Discharge: Yes Studies:: OUTPATIENT COLONOSCOPY IN 6-8 WEEKS Stand-Alone Forms: [employer] [facility] [employer], Smoking Cessation Medications and DC Order Prescriptions: Continued acetaminophen [Tylenol Extra Strength] 500 mg Tablet 1,000 mg PO Q6H PRN (Reason: Pain) RF: 0 Discontinued lisinopril 2.5 mg Tablet 2.5 mg PO QAM RF: 0 Discharge Orders: Discharge Order (Routine); Ordered 12/16/21 Ordered By: Juan Carlos Murrell Admission Data Admit Date/Time: 12/14/21 20:54 Attending Provider: Juan Carlos Murrell Admit Provider: Dejan Jones Primary Care Provider: Jessica Schwartz Other Providers: Dejan Jones ; Smith Luu ; Dianelys Martinez ; Rosina Astudillo ; Azul Delgado ; Phillip Mendoza ; Clara High ; Gilson Rasmussen ; Jones Sanabria ; Martha Arrington ; Christine Lu ; Bettye Rock ; Ngozi Khan ; Bubba Fontenot Other Interventions: Discharge Summary Assessment (RN) Last Done: 12/16/21 13:21
== END 2021-12-16 14:01 | disposition home or self-care (01) | DRG 395 ==
LOC: ED 16:42 → 2W 20:54

== ENCOUNTER 2025-04-18 07:19 | Observation (INO) ==
--- NOTE | 2025-03-15 09:36 | PAT Medication Instructions ---
Medication Instructions Date of Service March 15, 2025 Home Medications albuterol sulfate 90 mcg/actuation aerosol inhaler 2 puff inhalation Q6H PRN benzonatate 100 mg capsule 100 mg PO TID PRN celecoxib 100 mg capsule 100 mg PO BID gabapentin 300 mg capsule 300 mg PO HS ondansetron HCl 4 mg tablet 4 mg PO Q6H PRN ASK your surgeon for instructions celecoxib 100 mg capsule 100 mg PO BID DO NOT take the morning of surgery benzonatate 100 mg capsule 100 mg PO TID PRN Take morning of surgery With a small sip of water, OTHERWISE NOTHING TO EAT OR DRINK AFTER MIDNIGHT: albuterol sulfate 90 mcg/actuation aerosol inhaler 2 puff inhalation Q6H PRN(use if needed; please bring with you to hospital day of surgery if possible) ondansetron HCl 4 mg tablet 4 mg PO Q6H PRN(if needed) Take evening before surgery albuterol sulfate 90 mcg/actuation aerosol inhaler 2 puff inhalation Q6H PRN(if needed) benzonatate 100 mg capsule 100 mg PO TID PRN(if needed) gabapentin 300 mg capsule 300 mg PO HS ondansetron HCl 4 mg tablet 4 mg PO Q6H PRN(if needed) Other Notes If you have any questions please call us at [phone] or [phone] or [phone] or [phone]
--- NOTE | 2025-03-21 10:55 | Anesthesiology Consultation ---
Date of Service March 21, 2025 Assessment & Plan (1) Encounter for pre-operative examination: Chart Review Chart Review: Acceptable Risk for Surgery (pending PCP clearance ) and Patient seen in Pre Admission Testing - Awaiting PCP clearance 03/27/25 (REGAN Dueñas - Dr Jovany Burgos) - Check test AM DOS Right arm restriction Per PAT appt on 03/21/25, no recent illness/disease exposures, illness related symptoms, or recent illness/disease positive tests. Will leave to surgeon's discretion if preop Covid testing needed Teaching & Discussion Pre-Anesthesia Teaching/Discussion Notes: Instructed NPO after midnight before surgery,except medications with 15 cc of water. Medication instructions provided according to the PAT guidelines. History Surgery Operation Date: 04/18/25 07:45 Proposed Procedures p L3-L5 Decompression and Fusion, Spinal Cord Monitoring - Amol Messina, Height/Weight Height: 5 ft 6 in Weight: 108.3 kg Allergies Allergy/AdvReac Type Severity Reaction Status Date / Time Penicillins Allergy Intermediate HIVES A Verified 03/13/25 14:30 CHILD Medications Home Medications Medication Instructions Recorded Confirmed Last Taken albuterol sulfate 90 mcg/actuation 2 puff inhalation Q6H PRN sob 12/28/24 03/13/25 Unknown aerosol inhaler benzonatate 100 mg capsule 100 mg PO TID PRN Cough 12/28/24 03/13/25 Unknown celecoxib 100 mg capsule 100 mg PO BID 12/28/24 03/13/25 Unknown gabapentin 300 mg capsule 300 mg PO HS 12/28/24 03/13/25 Unknown ondansetron HCl 4 mg tablet 4 mg PO Q6H PRN nausea and vomiting 12/28/24 03/13/25 Unknown Past Medical History Medical History (Updated 03/22/25 @ 08:23 by Sylvie Tiwari PA-C) Anxiety (12/10/12) Arthritis 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, treated /no current issues Blood clot in vein - 2019, in left jugular and left arm (secondary to port per patient (port since removed)), treated w/ blood thinners x months- since taken off AC- no issues since Breast cancer 2019 RT chemo and radiation * Right arm restriction Cervical spinal stenosis full ROM, has "clicking" w/ movement Degenerative spondylolisthesis History of colitis no issues since 2021 History of COVID-19 (2021) resolved HTN (hypertension) Low back pain Neuropathy noted to feet- improved Seasonal allergies reason for prn inhaler; has not used inhaler "in a long time" Temporomandibular joint disorder 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 Son No problems noted. Denies family history of Ovarian cancer Breast cancer Colorectal cancer Past Surgical History Surgical History Family history of reaction to anesthesia FATHER-"MEAN WAKING UP AFTER ANESTHESIA" H/O breast biopsy RT History of lumpectomy of right breast History of vascular access device LEFT History of vascular access device right side after left discontinued due to clot Hx of colonoscopy [place] teeth removed Past Anesthesia History No Hx of Anesthesia Complications and No Family Hx of Anesthesia Complications (with exception to father- mean with emergence from anesthesia ) History of PONV No Hx of PONV and No Hx of Motion Sickness Social History Smoking Status: Never smoker Do You Dip or Chew Tobacco: No Hx Alcohol Use: Yes (once per week) alcohol intake frequency: other Hx Substance Use: No substance use type: does not use Review of Systems - Hx of snoring- no hx of sleep study Patient denies chest pain, shortness of breath, dyspnea on exertion, reflux, cough, wheezing, palpitations. No hx of seizures, stroke, [place]. No hx of blood transfusions Physical Exam Vital Signs VITALS BP 138/85 P 75 TEMP 98.3 SP02 96% RESP 16 Constitutional no acute distress ENMT Mouth: no TMJ clicking Thyromental Distance: > or= 3.5 Finger Breadths (3.5) Mallampati Class: III Missing molars Neck neck extension not limited Respiratory normal respiratory effort; no respiratory distress Auscultation: lungs clear to auscultation bilaterally; no wheezes Cardiovascular Rate/Rhythm: regular rate and regular rhythm Heart Sounds: no murmur Vessels: no carotid bruit Musculoskeletal Spine: no pain with cervical ROM Extremities: extremities normal to inspection Psychiatric Orientation: alert Lab Results Anesthesia Preop Results Results Anesthesia Widget: WBC 6.43 K/ul (4.8-10.8) 03/21/25 Hgb 13.8 g/dl (12.0-16.0) 03/21/25 Hct 42.5 % (37.0-47.0) 03/21/25 Plt 233 K/uL (130-400) 03/21/25 Na 141 mmol/L (136-145) 03/21/25 K 4.0 mmol/L (3.5-5.1) 03/21/25 Cl 106 mmol/L (98-107) 03/21/25 CO2 28 mmol/L (21-32) 03/21/25 BUN 15 mg/dl (6-23) 03/21/25 Creat 0.94 mg/dl (0.6-1.2) 03/21/25 Glucose Level 96 mg/dl (70-99(Fasting)) 03/21/25 PT 10.1 Seconds (9.0-12.0) 03/21/25 PTT 24 Seconds (21-31) 03/21/25 INR 0.9 (0.9-1.1) 03/21/25 Urine Color Yellow 03/21/25 Urine Appearance Clear (Clear) 03/21/25 Urine pH 6.5 (4.5-7.5) 03/21/25 Urine Specific [place] 1.005 (1.000-1.030) 03/21/25 Urine Protein Negative (Negative) 03/21/25 Urine Glucose (UA) Negative (Negative) 03/21/25 Urine Ketones Negative (Negative) 03/21/25 Urine Blood Trace (Negative) H 03/21/25 Urine Nitrite Negative (Negative) 03/21/25 Urine Bilirubin Negative (Negative) 03/21/25 Urine Urobilinogen Negative (Negative) 03/21/25 Urine Leukocyte Esterase Negative (Negative) 03/21/25 Urine WBC (Auto) 0-5 /hpf (0-5) 03/21/25 Urine RBC (Auto) 0-2 /hpf (0-2) 03/21/25 Urine Hyaline Casts (Auto) 0-2 /lpf (0-2) 03/21/25 Urine Epithelial Cells (Auto) 0-2 /hpf (0-2) 03/21/25 Urine Bacteria (Auto) None Seen (None Seen) 03/21/25 Blood Type B Positive 03/21/25 Antibody Screen NEGATIVE 03/21/25 Testing Electrocardiogram Date: 03/21/25 Findings: + NSR @ (68bpm ) Normal EKG per cardio Chest X-Ray Date: 03/21/25 Findings: + NAD Echocardiogram Date: 05/23/19 EF: 55-59% LV Function: normal Other Findings: no LVH Valvular Disease: + no significant valvular disease Mild MR. Mild TR
[~2025-04-18 07:19] MED LIST: LIDOCAINE 2% 2 ML VIAL/AMP(20MG/ML) INFIL ONE; PROPOFOL IV EMULSION 10 MG/ML 20 ML VIAL IV ONE; ROCURONIUM BROMIDE 10 MG/ML 5 ML VIAL IV ONE
[2025-04-18] MEDS: ACETAMINOPHEN 500 MG TAB PO SCH (07:43)
[2025-04-18] MEDS: LR 60ML/HR IV SCH (07:44)
[2025-04-18] MEDS: CeleBREX 200 MG CAP PO SCH (07:44)
[2025-04-18] MEDS: GABAPENTIN 900 MG DOSE PO SCH (07:44)
[2025-04-18] MEDS: LR 15ML/HR IV SCH (08:17)
[2025-04-18] MEDS: VANCOMYCIN HCL 1,500 MG in SODIUM CHLORIDE 0.9% 500 ML IV SCH (08:17)
[2025-04-18] MEDS ORDERED: ONDANSETRON INJ 2 MG/ML 2 ML VIAL IV PRN (08:52)
[2025-04-18] MEDS ORDERED: ATROPINE SULFATE 0.1 MG/ML 10ML SYR IV PRN (08:52)
--- NOTE | 2025-04-18 08:52 | History & Physical Bridge Note ---
Date of Service April 18, 2025 History & Physical Bridge Note I have examined the patient, reviewed the History & Physical and in the interval since the performance of the History & Physical I have noted the following changes of clinical significance: no changes noted
--- NOTE | 2025-04-18 08:56 | History & Physical Report ---
Date of Service April 18, 2025 Assessment & Plan (1) Spondylolisthesis, lumbar region: Plan: L3-L5 decompression and fusion History of Present Illness Chief Complaint: Back and leg pain Primary Care Provider: Jackson Stahl MD This is a 55-year-old female who presents chronic persistent back and leg pain after failing course of nonoperative care is here for surgical invention Allergies Allergy/AdvReac Type Severity Reaction Status Date / Time Penicillins Allergy Intermediate HIVES A Verified 04/18/25 07:32 CHILD Home Medications Medication Instructions Recorded Confirmed Type albuterol sulfate 90 mcg/actuation 2 puff inhalation Q6H PRN sob 12/28/24 04/18/25 History aerosol inhaler benzonatate 100 mg capsule 100 mg PO TID PRN Cough 12/28/24 04/18/25 History celecoxib 100 mg capsule 100 mg PO BID 12/28/24 04/18/25 History gabapentin 300 mg capsule 300 mg PO HS 12/28/24 04/18/25 History ondansetron HCl 4 mg tablet 4 mg PO Q6H PRN nausea and vomiting 12/28/24 04/18/25 History Past Med/Surg History Problem List (Updated 04/18/25 @ 08:53 by Amol Messina DO) Spondylolisthesis, lumbar region Encounter for pre-operative examination Lumbar radiculopathy, right Degenerative spondylolisthesis Lower abdominal pain (Acute) Malignant neoplasm of central portion of right breast in female, estrogen receptor negative (Chronic 05/06/19) 2020 Spinal stenosis (12/10/12) Secondary amenorrhea Medical History (Updated 04/18/25 @ 08:53 by Amol Messina DO) Low back pain Degenerative spondylolisthesis 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, treated /no current issues History of COVID-19 (2021) resolved History of colitis no issues since 2021 Seasonal allergies reason for prn inhaler; has not used inhaler "in a long time" Neuropathy noted to feet- improved Cervical spinal stenosis full ROM, has "clicking" w/ movement Temporomandibular joint disorder 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 driver 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, has right sided clicking, no locking Blood clot in vein - 2019, in left jugular and left arm (secondary to port per patient (port since removed)), treated w/ blood thinners x months- since taken off AC- no issues since Breast cancer 2019 RT chemo and radiation * Right arm restriction Anxiety (12/10/12) HTN (hypertension) Arthritis Urinary incontinence Surgical History Hx of colonoscopy History of lumpectomy of right breast History of vascular access device right side after left discontinued due to clot Family history of reaction to anesthesia FATHER-"MEAN WAKING UP AFTER ANESTHESIA" History of vascular access device LEFT H/O breast biopsy RT [place] teeth removed Family History Father Hypertension Thyroid disorder Cancer bladder cancer Mother Hypertension Daughter No problems noted. Son No problems noted. 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
[2025-04-18] MEDS ORDERED: MIDAZOLAM HCL 1 MG/ML 2ML VIAL ONE (09:07)
[2025-04-18] MEDS ORDERED: KETAMINE HCL 10MG/ML SYR ONE (09:08)
[2025-04-18] MEDS ORDERED: ROCURONIUM BROMIDE 10 MG/ML 5 ML VIAL IV ONE (09:49)
[2025-04-18] MEDS ORDERED: ePHEDrine sulfate 50 MG/5 ML SYR ONE (09:56)
[2025-04-18] MEDS ORDERED: DEXAMETHASONE SOD INJ 4 MG/ML VIAL ONE (09:59)
[2025-04-18] MEDS: BUPIVACAINE/EPINEPHRINE 0.25% 1:200,000 30 ML VIAL ONE (10:04)
[2025-04-18] MEDS: ceFAZolin 330 MG/ML 1 GM VIAL ONE ×2 (10:04→11:14)
[2025-04-18] MEDS: FLOSEAL HEMOSTATIC MATRIX 10ML TOP ONE (11:15)
[2025-04-18] MEDS ORDERED: SUGAMMADEX SODIUM 200 MG/2 ML VIAL IV ONE (11:16)
[2025-04-18] MEDS ORDERED: HYDROmorphone INJ 2 MG/ML SYR/VIAL ONE (11:26)
--- NOTE | 2025-04-18 11:33 | Operative Report ---
Post Operative Report Pre & Post Diagnosis Operation Date: 04/18/25 08:45 Pre-Op Diagnosis: #1 multilevel lumbar spondylosis with radiculopathy #2 lumbar spondylolisthesis with radiculopathy #3 lumbar spinal stenosis Post-Op Diagnosis: Same I identified the patient and participated in the time-out.: Yes Procedure Operation Date: 04/18/25 08:45 Actual Procedures #1 lumbar decompression with bilateral medial facetectomies and foraminotomies L2-L3, L3-L4 and L4-5. #2 posterior spinal fusion L3-L5. #3 placed posterior instrumentation L3-L5 using De La Torre. #4 interbody fusion L3-L4 L4-5 by #5 history of Spira 13 x 26 mm at L3-L4 and 14 x 26 mm x 2 at L4-L5. #6 placement locally harvested morselized autograft in the posterior lateral gutters. #7 pl acement of Proteus combined with Koros in the posterior lateral gutters and os design interbody space. #8 application of versa wrap of the exposed dura. Surgeon Amol Messina, DO Police Chief Deputy Gladys Pearce Estimated Blood Loss 250 Findings See Below The patient is 5 foot 6 weighing over 100 kg with a BMI in excess of 38. The patient's body habitus did contribute to significant technical difficulty with positioning exposure and the procedure itself. The are longus retractors and instruments were required for the procedure. This added at least 25% increased operative time. I am recommending a modifier 22 Specimens None Indications This is a 55-year-old female presents publish diagnosis after failing course of nonoperative care is here for surgical invention. Description of Procedure Patient was met with identified informed consent obtained. Patient was then taken to the operative suite underwent ablation placed in a prone position on the Jason table atop Cooper frame. All bony prominences well-padded eyes inspected to ensure no external pressure placed upon them. At this point lumbar spine is prepped and draped no sterile fashion. Sharp dissection with the assistance of Bovie cautery performed down to and exposing the lamina transverse processes of L3 L4-5 bilaterally. From a caudal to cephalad fashion complete laminectomy of L4 was performed including bilateral medial facetectomies and foraminotomies addressing severe neural compression. This was followed by complete laminectomy of L3 with bilateral medial facetectomies and foraminotomies and lastly partial laminectomy of L2 with bilateral medial facetectomies to address all subarticular stenosis and neural compression. Pedicle screws were then placed in L3-L4-L5 bilaterally with assistance of fluoroscopy and appropriate size ronnie contoured and placed. By way of transforaminal approach on the left discectomy of L4-L5 was performed endplates corrected to subcortical bleeding bone and a 14 x 26 mm Spira cage tapped into position. Then proceeded to the right transforaminal region at L4-5. Again discectomy performed. Endplates guided to subcortical bleeding bone and a second 14 x 26 mm Spira cage tapped into position. Lastly approached L3-L4. By way of a trans foraminal approach on the right a complete discectomy was performed. Endplates guided to subcortical bleeding bone and a 13 x 26 mm Spira cage tapped into position. Please note all cages were packed with os design bone graft. The rods were then compressed locked into final position bilaterally. The transverse processes of L3 L4-5 burred to subcortically bone. Proteus combined with Koros and locally harvested morselized autograft placed in the posterior gutters. Versa wrap placed over the exposed dura. 15 round JAYSHREE drain inserted. The incision was then closed with 1 Vicryl the fascia 2-0 Vicryl subcutaneously and 4 Monocryl for final skin closure. Steri-Strips sterile dressing placed. Patient waken taken PACU stable condition. Please note Gladys Pearce was present throughout the entire procedure and while the patient positioning complex portion of the surgery and final skin closure. Im ordering 10 grams of Collagen Powder (HCPCS A6010 Primary Dressing) and 10 bordered super absorbent (HCPCS A6196 Secondary Dressing) to treat an incision wound that was caused by a spine procedure. The incision is approximately 2 cm(W) x 2 cm(L) down to the spinal column and epidural space 2 cm (D) in size and is a full thickness wound showing no signs of infection. Collagen comes in 1 gram packets so 10 packets were ordered. Given the size of the wound, with moderate exudate I chose to order a 10 day supply. The patient will be provided instructions for proper application of the collagen wound kit. The patient will be asked to apply the collagen powder daily and then cover it with sterile dressings dispensed. Collagen was selected as I expect the collagen to attract monocytes and fibroblasts, act as a sacrificial substrate for MMPs, and ultimately proved a matrix for tissue and vessel growth. The collagen will act as a primary dressing in this scenario. It is medically necessary for proper healing of these wounds to improve bioavailability and contact with each wound surface, this is also to help prevent infection of wounds and promote healing ultimately leading to a better healing outcome and limit the risk of infection. I attest to the content of the Intraoperative Record and any orders documented therein. Any exceptions are noted below.
--- NOTE | 2025-04-18 12:37 | Anesthesiology Progress Note ---
Date of Service April 18, 2025 Anesthesia Post Procedure Vital Signs Vital Signs: Temp Pulse Pulse Resp BP Pulse Ox O2 Del Method 04/18/25 12:30 97.5 F L 85 12 140/89 98 Nasal Cannula 04/18/25 12:20 80 16 144/82 H 92 Room Air 04/18/25 12:10 72 18 141/69 H 96 Oxymask 04/18/25 12:00 83 14 125/72 98 Oxymask 04/18/25 11:50 86 15 131/70 97 Oxymask 04/18/25 11:49 97.3 F L 87 14 137/81 98 Oxymask 04/18/25 07:36 98.6 F 98 H 16 158/97 H 98 Room Air O2 Flow Rate 04/18/25 12:30 1 04/18/25 12:20 04/18/25 12:10 2 04/18/25 12:00 8 04/18/25 11:50 8 04/18/25 11:49 8 04/18/25 07:36 Pain Intensity Bilateral Lower Back: Pain Intensity: 5 Back: Pain Intensity: 5 Transfer of Care Handoff Completed per policy Notes Mental Status: alert / awake / arousable and participated in evaluation Patient Amnestic to Procedure: Yes Nausea / Vomiting: adequately controlled Pain: adequately controlled Airway Patency, RR, SpO2: stable & adequate BP & HR: stable & adequate Hydration State: stable & adequate Anesthetic Complications: no major complications apparent and Pt Satisfied with anesthetic care
--- NOTE | 2025-04-18 12:44 | Fluoroscopy Report ---
FL lumbar spine 2-3V CLINICAL HISTORY: L3-L5 DECOMPRESSION AND FUSION COMPARISON STUDY: None FLUOROSCOPY TIME: 15 seconds FLUOROSCOPY IMAGES: 2 EXPOSURE DOSE: 17 mGy FINDINGS: Fluoroscopy was provided for lumbar surgery. IMPRESSION: Intraoperative fluoroscopy. ACT 112: Negative or not required by law. Electronically signed by: Eren Moeller M.D. 04/18/2025 12:42 PM
[2025-04-18] MEDS ORDERED: diphenhydrAMINE Capsule 25 MG CAP PO PRN (14:04)
[2025-04-18] MEDS ORDERED: FAMOTIDINE 20 MG TAB PO PRN (14:04)
[2025-04-18] MEDS ORDERED: PROMETHAZINE 12.5 MG/50.5 ML BAG IV PRN (14:04)
[2025-04-18] MEDS ORDERED: ALBUTEROL HFA 8 GM INHALER INH PRN (14:04)
[2025-04-18] MEDS ORDERED: DO NOT ADMINISTER PNEUMOCOCCAL VACCINE PRN (14:04)
[2025-04-18] MEDS ORDERED: SOD PHOSPHATE/SOD BIPHOSPHATE ENEMA 132 ML BTL PR PRN (14:04)
[2025-04-18] MEDS ORDERED: DO NOT ADMINISTER FLU VACCINE PRN (14:04)
[2025-04-18] MEDS ORDERED: METOCLOPRAMIDE HCL INJ 5 MG/ML 2 ML VIAL IV PRN (14:04)
[2025-04-18] MEDS ORDERED: MAGNESIUM HYDROXIDE SUSP 30 ML UDC PO PRN (14:04)
[2025-04-18] MEDS ORDERED: LORazepam Inj 0.5 MG in SYRINGE 0.25 ML IV PRN (14:04)
[2025-04-18] MEDS ORDERED: ACETAMINOPHEN 1,000 MG/100 ML VIAL IV PRN (14:04)
[2025-04-18] MEDS ORDERED: HYDROmorphone INJ 1 MG/ML SYRINGE IV PRN (14:04)
[2025-04-18] MEDS ORDERED: ALUMINUM/MAGNESIUM SUSP 30 ML UDC PO PRN (14:04)
[2025-04-18] MEDS ORDERED: NALOXONE HCL 0.4 MG/1 ML VIAL/CARP IV PRN (14:04)
[2025-04-18] MEDS: SODIUM CHLORIDE 0.9% 1,000 ML IV SCH (14:26)
[2025-04-18] MEDS: HYDROmorphone INJ 0.5 MG/0.5 ML SYR IV PRN (14:29)
--- NOTE | 2025-04-18 14:33 | Consultation ---
Date of Consultation April 18, 2025 Assessment & Plan (1) S/P spinal surgery: Post op day#0 S/P decompression and fusion L3-L5 by Dr Messina EBL#250ml Pain management per ortho Wound management per ortho PT/OT as appropriate DVT prophylaxis per ortho Incentive spirometry Monitor H&H for acute blood loss anemia; pre-op Hgb: 13.8 (2) HTN (hypertension): No longer on medications Monitor BP (3) History of breast cancer: S/P chemo, radiation, partial mastectomy (4) Obesity: BMI: 38 Lifestyle recommendations DVT Prophylaxis SCDs Disposition per primary service Follows with Jovany Burgos PA-C for routine care Pt was seen and care coordinated with Dr Valdez. See addendum Thank you for this consultation. We will follow the patient with you during their hospital stay. You can reach a member of the [facility] Hospitalist Team 09/02 via DEQ Supervising Physician Co-Signing Physician Notes Patient seen and examined Reports surgical site pain Continue pain meds Activity per Primary Surgeon PT/OT Check CBC and BMP in AM Other plans as detailed by Kailey Warner PA-C History of Present Illness Requesting Physician: Dr Messina Reason for Consultation: Post op medical management Attending Physician: Amol Messina, DO History of Present Illness Patient is 55 year old female with PMH HTN, breast CA s/p chemo, radiation and partial mastectomy, obesity seen in medical consultation s/p decompression and fusion L3-L5 today by Dr Messina. Post op reports significant low back pain and just received some pain medication. She reports prior to surgery was having bilateral leg heaviness and reports this feels same so far. Last BM this morning. Has Nuñez cath still in place. Denies fever/chills, N/V/D/C, SANCHEZ, dizziness, neck pain, CP, SOB, abdominal pain, paresthesias, extremity edema, rashes, urinary symptoms. Allergies Allergy/AdvReac Type Severity Reaction Status Date / Time Penicillins Allergy Intermediate HIVES A Verified 04/18/25 07:32 CHILD Home Medications Medication Instructions Recorded Confirmed Type albuterol sulfate 90 mcg/actuation 2 puff inhalation Q6H PRN sob 12/28/24 04/18/25 History aerosol inhaler benzonatate 100 mg capsule 100 mg PO TID PRN Cough 12/28/24 04/18/25 History celecoxib 100 mg capsule 100 mg PO BID 12/28/24 04/18/25 History gabapentin 300 mg capsule 300 mg PO HS 12/28/24 04/18/25 History ondansetron HCl 4 mg tablet 4 mg PO Q6H PRN nausea and vomiting 12/28/24 04/18/25 History Patient History Medical History Low back pain Degenerative spondylolisthesis 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, treated /no current issues History of COVID-19 (2021) resolved History of colitis no issues since 2021 Seasonal allergies reason for prn inhaler; has not used inhaler "in a long time" Neuropathy noted to feet- improved Cervical spinal stenosis full ROM, has "clicking" w/ movement Temporomandibular joint disorder 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 guard captain, has right sided clicking, no locking Blood clot in vein - 2019, in left jugular and left arm (secondary to port per patient (port since removed)), treated w/ blood thinners x months- since taken off AC- no issues since Breast cancer 2019 RT chemo and radiation * Right arm restriction Anxiety (12/10/12) HTN (hypertension) Arthritis Urinary incontinence Surgical History Hx of colonoscopy History of lumpectomy of right breast History of vascular access device right side after left discontinued due to clot Family history of reaction to anesthesia FATHER-"MEAN WAKING UP AFTER ANESTHESIA" History of vascular access device LEFT H/O breast biopsy RT [place] teeth removed Family History Father Hypertension Thyroid disorder Cancer bladder cancer Mother Hypertension Daughter No problems noted. Son No problems noted. 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 Other Information That Helps Us Care for You: No Feels Safe at Home: Yes Safety Concerns: Feels Safe At This Time Assistive Devices: Glasses Review of Systems Review of Systems: All systems reviewed & are unremarkable except as noted in HPI & below Physical Exam Physical Exam: General: no distress, obese Head: normocephalic, atraumatic Eyes: conjunctiva non-injected, anicteric ENT: normal inspection external ears, nose, mucous membranes moist Neck: supple, trachea midline Lungs: clear, no respiratory distress, no wheezing/rhonchi/rales CV: RRR, no murmur, no pretibial edema Abd: normal BS, soft, non-tender Back: +JAYSHREE drain with serosanguineous drainage; pedal pushes and pulls intact bilaterally Ext: no cyanosis, no calf tenderness Neuro: A&O x 3, no focal deficits noted, normal affect Skin: warm, dry Results & Data Vital Signs (Past 12 Hours) Vital Signs Temp Pulse Pulse Resp BP Pulse Ox O2 Del Method 04/18/25 14:04 36.9 C 71 16 132/84 95 Room Air 04/18/25 13:30 88 16 140/83 99 Nasal Cannula 04/18/25 13:15 82 18 146/80 H 95 Nasal Cannula 04/18/25 13:00 67 18 152/91 H 99 Nasal Cannula 04/18/25 12:45 73 16 145/86 H 99 Nasal Cannula 04/18/25 12:30 36.4 C L 85 12 140/89 98 Nasal Cannula 04/18/25 12:20 80 16 144/82 H 92 Room Air 04/18/25 12:10 72 18 141/69 H 96 Oxymask 04/18/25 12:00 83 14 125/72 98 Oxymask 04/18/25 11:50 86 15 131/70 97 Oxymask 04/18/25 11:49 36.3 C L 87 14 137/81 98 Oxymask 04/18/25 07:36 37 C 98 H 16 158/97 H 98 Room Air O2 Flow Rate 04/18/25 14:04 04/18/25 13:30 1 04/18/25 13:15 1 04/18/25 13:00 1 04/18/25 12:45 1 04/18/25 12:30 1 04/18/25 12:20 04/18/25 12:10 2 04/18/25 12:00 8 04/18/25 11:50 8 04/18/25 11:49 8 04/18/25 07:36 Diagnostic Findings Lumbar Spine X-Ray 04/18/25 00:00 FL lumbar spine 2-3V CLINICAL HISTORY: L3-L5 DECOMPRESSION AND FUSION COMPARISON STUDY: None FLUOROSCOPY TIME: 15 seconds FLUOROSCOPY IMAGES: 2 EXPOSURE DOSE: 17 mGy FINDINGS: Fluoroscopy was provided for lumbar surgery. IMPRESSION: Intraoperative fluoroscopy. ACT 112: Negative or not required by law. Electronically signed by: Eren Moeller M.D. 04/18/2025 12:42 PM
[2025-04-18] MEDS: ONDANSETRON INJ 2 MG/ML 2 ML VIAL IV PRN (18:14)
[2025-04-18] MEDS: ACETAMINOPHEN 500 MG TAB PO PRN (20:45)
[2025-04-18] MEDS: DOCUSATE SODIUM/SENNA 50/8.6MG TAB PO SCH (20:45)
[2025-04-18] MEDS: GABAPENTIN 300 MG CAP PO SCH (20:46)
[2025-04-18] MEDS: LORazepam 0.5 MG TAB PO PRN (21:14)
[2025-04-18] MEDS: BENZONATATE 100 MG CAPSULE PO PRN (22:39)
[2025-04-19] MEDS: POLYETHYLENE (MIRALAX) 17 GM PACK PO SCH (05:08)
--- NOTE | 2025-04-19 08:21 | Orthopedic Progress Note ---
Date of Service April 19, 2025 Assessment & Plan (1) Spondylolisthesis, lumbar region: Plan: This time we will initiate physical therapy monitor JAYSHREE output anticipate discharge over the next few days. Admission and Anticipated Discharge Date Admission Date: April 18, 2025 Subjective Back pain is controlled leg symptoms improved patient was out of bed last evening. Physical Exam Physical Exam: Patient has good strength testing. Appears comfortable. Results & Data Vital Signs (Past 12 Hours) Vital Signs Temp Pulse Resp BP Pulse Ox O2 Del Method 04/19/25 07:36 36.6 C 76 16 104/67 93 Room Air 04/19/25 03:30 36.7 C 87 16 111/73 95 Room Air 04/18/25 22:12 36.9 C 79 16 107/62 96 Room Air 04/18/25 20:40 Room Air Queries Orthopedic Spine Obesity: Yes
[2025-04-19 08:24] LABS: Hematocrit (blood only) 35.2 % (37.0-47.0); Hemoglobin 11.6 g/dl (12.0-16.0); Immature Granulocytes # (auto) 0.06 K/uL (0.01-0.20); Immature Granulocytes % (auto) 0.5 %; Mean Corpuscular Hemoglobin 29.9 pg (25.0-34.0); Mean Corpuscular Volume 90.7 fL (80.0-100.0); Platelet Count 225 K/uL (130-400); RDW Standard Deviation 45.9 fL (36.4-46.3); Red Blood Count 3.88 M/uL (4.20-5.40); White Blood Count 12.85 K/ul (4.8-10.8)
[2025-04-19 08:43] LABS: Anion Gap 7.0 (3-11); Blood Urea Nitrogen 10.0 mg/dl (6-23); Calcium 8.9 mg/dl (8.6-10.3); Carbon Dioxide 27.0 mmol/L (21-32); Chloride 108.0 mmol/L (98-107); Creatinine Clr Calc Pharmacy 85.3 ml/min; Glucose 120.0 mg/dl (70-99(Fasting)); Potassium 3.7 mmol/L (3.5-5.1); Sodium 142.0 mmol/L (136-145)
[2025-04-19] MEDS: dexAMETHasone 6 MG in SYRINGE 0 ML IV SCH (09:12)
--- NOTE | 2025-04-19 13:00 | Hospitalist Progress Note ---
Date of Service April 19, 2025 Assessment & Plan (1) S/P spinal surgery: Plan: #S/P decompression and fusion L3-L5 by Dr Messina on 04/18 Plan Pain control Wound management per ortho PT/OT as appropriate DVT prophylaxis per ortho Incentive spirometry #Anemia -Hgb 11.6 from 13.8 on admission -Acute blood loss anemia secondary to surgery -Monitor counts -Transfuse < 7 #Anxiety -Continue prn atarax and ativan I spent a total of 32 minutes coordinating, documenting, and providing care for this patient excluding time spent in the performance of separately billed services. This included personally reviewing all current laboratories and imaging studies, medical reconciliation, outpatient chart review and discussion with specialists (2) HTN (hypertension): Plan: No longer on medications Monitor BP (3) History of breast cancer: Plan: S/P chemo, radiation, partial mastectomy (4) Obesity: Plan: BMI: 38 Lifestyle recommendations DVT Prophylaxis SCDs Disposition per primary service Follows with Jovany Burgos PA-C for routine care Pt was seen and care coordinated with Dr Valdez. See addendum Thank you for this consultation. We will follow the patient with you during their hospital stay. You can reach a [facility] via [employer] Admission and Anticipated Discharge Date Admission Date: April 18, 2025 Subjective She is c/o LBP today. she is anxious and tearful. Patient denies F/C, CP, palpitations, SOB, dyspnea, abd pain, N/V/D Physical Exam Physical Exam: Vitals and labs reviewed General: Well appearing, NAD HEENT: EOMI, PERRLA Neck: Supple Cardiac: RRR no rubs gallops or murmurs Lungs: CTA no rhonchi wheezing or rales Abd: S NT ND BS positive MSK: Full ROM. No obvious deformities JAYSHREE drain Ext: No Edema cyanosis Skin: Warm, Dry Neuro: AOx3 No focal deficits. Psych: anxious, tearful Results & Data Results & Data Vital Signs (Past 12 Hours) Vital Signs Temp Pulse Resp BP Pulse Ox O2 Del Method 04/19/25 09:24 67 117/80 97 Room Air 04/19/25 07:36 36.6 C 76 16 104/67 93 Room Air 04/19/25 03:30 36.7 C 87 16 111/73 95 Room Air Laboratory Results Abnormal lab results 04/18/25 04/19/25 Range/Units 07:33 07:56 WBC 12.85 H (4.8-10.8) K/ul RBC 3.88 L (4.20-5.40) M/uL Hgb 11.6 L (12.0-16.0) g/dl Hct 35.2 L (37.0-47.0) % Neut # (Auto) 9.82 H (1.40-6.50) K/uL King # (Auto) 1.19 H (0.11-0.59) K/uL Chloride 108 H (98-107) mmol/L Glucose 120 H (70-99(Fasting)) mg/dl Crossmatch See Detail
--- NOTE | 2025-04-20 08:23 | Orthopedic Progress Note ---
Date of Service April 20, 2025 Assessment & Plan (1) Spondylolisthesis, lumbar region: Plan: At this time we will continue physical therapy monitor JAYSHREE output anticipate discharge home tomorrow. Admission and Anticipated Discharge Date Admission Date: April 18, 2025 Subjective Back pain controlled leg pain improved Physical Exam Physical Exam: Patient is currently in bed. Appears comfortable. Constricted testing. Results & Data Vital Signs (Past 12 Hours) Vital Signs Temp Pulse Resp BP Pulse Ox O2 Del Method 04/20/25 07:00 36.8 C 56 L 14 128/83 96 Room Air 04/19/25 22:25 36.5 C 61 18 113/62 92 Room Air Queries Orthopedic Spine Acute Posthemorrhagic Anemia: Yes Obesity: Yes
[2025-04-20] MEDS: ONDANSETRON 4 MG OD TAB PO PRN (09:11)
--- NOTE | 2025-04-20 10:29 | Hospitalist Progress Note ---
Date of Service April 20, 2025 Assessment & Plan (1) S/P spinal surgery: Plan: #S/P decompression and fusion L3-L5 by Dr Messina on 04/18 Plan Pain control Wound management per ortho PT/OT as appropriate DVT prophylaxis per ortho Incentive spirometry No medical contraindication to discharge tomorrow #Anemia -Hgb 11.6 from 13.8 on admission -Acute blood loss anemia secondary to surgery -Monitor counts. check Hgb today -Transfuse < 7 #Anxiety -Continue prn atarax and ativan I spent a total of 35 minutes coordinating, documenting, and providing care for this patient excluding time spent in the performance of separately billed services. This included personally reviewing all current laboratories and imaging studies, medical reconciliation, outpatient chart review and discussion with specialists (2) HTN (hypertension): Plan: No longer on medications Monitor BP (3) History of breast cancer: Plan: S/P chemo, radiation, partial mastectomy (4) Obesity: Plan: BMI: 38 Lifestyle recommendations DVT Prophylaxis SCDs Disposition per primary service Follows with Jovany Burgos PA-C for routine care Pt was seen and care coordinated with Dr Valdez. See addendum Thank you for this consultation. We will follow the patient with you during their hospital stay. You can reach a member of the [facility] Team 09/02 via [employer] Admission and Anticipated Discharge Date Admission Date: April 18, 2025 Subjective Feeling much better today. less anxious. less pain. no other complaints. urinating without issue. no BM yet but passing gas and no abd pain n/v. tolerating diet Physical Exam Physical Exam: Vitals and labs reviewed General: Well appearing, NAD Neck: Supple Cardiac: RRR no rubs gallops or murmurs Lungs: CTA no rhonchi wheezing or rales Abd: S NT ND BS positive MSK: Full ROM. No obvious deformities JAYSHREE drain Ext: No Edema cyanosis Skin: Warm, Dry Neuro: AOx3 No focal deficits. Psych: calm pleasant Results & Data Results & Data Vital Signs (Past 12 Hours) Vital Signs Temp Pulse Resp BP Pulse Ox O2 Del Method 04/20/25 07:00 36.8 C 56 L 14 128/83 96 Room Air
[2025-04-20 14:22] VITALS: O2SAT 95
[2025-04-21 07:10] VITALS: BP 136/79; PULSE 56; RESP 16; TEMP 98.1
--- NOTE | 2025-04-21 09:26 | Discharge Summary ---
Date of Service April 21, 2025 Admission HPI Per Admitting Provider This is a 55-year-old female who presents chronic persistent back and leg pain after failing course of nonoperative care is here for surgical invention Principal Diagnosis Lumbar spondylosis with radiculopathy Discharge Data Allergies Allergy/AdvReac Type Severity Reaction Status Date / Time Penicillins Allergy Intermediate HIVES A Verified 04/18/25 07:32 CHILD Consultations 04/18/25 14:04 Consult Hospitalist Routine Procedures Performed Operation Date: 04/18/25 08:45 Actual Procedures p L3-L5 Decompression and Fusion(Not Applicable) - Amol Messina DO Ordered Studies 04/18/25 [place] lumbar spine 2-3V Routine Hospital Course (1) Spondylolisthesis, lumbar region: Patient underwent multilevel lumbar depression fusion tolerated as well as taken to orthopedic for postoperative. Postoperatively progressed appropriately. Leg pain improved. JAYSHREE drain decreasing. Extra strength testing. Safely discharged home. Discharge orders and instructions from the chart for further review. Total Time Total Time Spent Total Time Spent (In Minutes): 20 minutes Discharge Plan Discharge Items Patient Disposition: Home - Self-Care Reason For Visit: Spondylolisthesis Lumbar Region, Two Level Lumbosa Discharge Diagnosis: Lumbar spondylolisthesis with radiculopathy Activity: As commented below Non-emergency contact: Primary Care Provider Call non-emergency contact if: you have any medication questions Follow-up/Referrals: Jackson Stahl MD [Primary Care Provider] - (Date & Time 04/28/2025 10:00 AM Provider: Jovany Burgos PA-C [facility], [facility]) Diet: Regular Addtl Attending Provider Instructions: ACTIVITY RECOMMENDATIONS: SELF CARE INSTRUCTIONS AFTER THORACIC/LUMBAR FUSIONS 1. You may walk to your tolerance. It is good exercise for your legs and back. Expect some back and intermittent leg aches and pains. 2. You may perform "counter-top" level activities (make a sandwich, lorenza with a project, etc.). 3. No bending or lifting of more than 10 pounds or back twisting of any nature (roll like a log when turning in bed). 4. You may ride in a car for 20-30 minutes at a time. No driving until after your first visit with your doctor. 5. Frequent changes of position and restricting sitting to 30 minutes at a time will help limit the amount of back spasms and stiffness you may experience. 6. You may discontinue the use of ambulatory aids (cane, crutches, etc.) once your strength and confidence allow. 7. You may traveling buyer the shower and let water strike your incision when you arrive home at least once daily. Do not take a tub bath, sit in a hot tub or go into a swimming pool until after your first recheck in the office. 8. You may resume previous diet. SPECIAL CARE INSTRUCTIONS: VERY IMPORTANT TO READ AND REVIEW A. Your surgical incision has been closed with a cosmetic suture under the skin that will dissolve in about 6 weeks. In 14 days, you can use a pair of clean scissors and cut the suture that is left outside of the skin at the ends of your incision. 1. The small skin tapes can be removed 7 days after surgery if they have not fallen off by that point. 2. You may keep the wound open to air as much as possible to promote healing after post-op day number 5 unless told otherwise by your doctor. 3. If you think the wound looks like it is becoming infected (redness or worsening drainage) and/or you are experiencing fever, chill or worsening back pain and muscle spasms, contact the office so that we may evaluate you as soon as possible. B. Complications are uncommon, but please contact us if you have any signs or symptoms of: 1. wound infection (fever higher than 102.5 degrees F, redness, separation of wound, drainage, or increasing pain from the incision) 2. blood clots in legs (pain, swelling, redness and warmth in legs) 3. urinary tract infection (fever higher than 102.5 degrees F, burning upon urination or increased frequency of urination) 4. nerve problems (inability to walk on your toes or heels, numbness, loss of bowel or bladder control) 5. any other symptoms that concern you C. Please call the office at if you have any concerns or questions about your operation or recovery. D. No smoking! Smoking drastically decreases the chance of a solid fusion. E. Do not take any anti-inflammatory medications (Indocin, Advil, Motrin, Aspirin, Naprosyn, etc.) as these may inhibit the chance of a solid fusion. T ylenol is okay to take for pain. MANAGING PAIN AFTER SPINAL SURGERY 1. Narcotic medication is intended for short-term use and will be provided for surgical pain. Surgical pain usually lasts for a period of 4-6 weeks. Narcotic medication includes Percocet, Vicodin, Darvocet, Tylenol #3 or Lortab. 2. Longer-term pain is more appropriately treated with non-narcotic medication such as Tylenol ES. 3. Muscle spasm is not appropriately treated with narcotics. Muscle relaxers such as Soma, Flexeril or Skelaxin can be used along with Tylenol ES. 4. Remember that we all live with some "aches and pains". This is not unusual or uncommon after an injury or as we get older. a. Back pain is expected and may include muscle spasms for 4 to 6 weeks after surgery. The pain should gradually improve. If the pain worsens for no apparent reason, please contact the office. b. Intermittent leg pain may also be experienced and should not be concerned about unless it worsens for no apparent reason. If so, please contact the office. 5. We will provide appropriate medication within the normal guidelines of their prescribed use. We will also be very cautious and aware of potential abuse and extended duration of patients' medication needs. a. Pain medications are for your comfort and to assist with sleep and rest so that the tissue can heal. They are not provided in order to return to normal activity and should not be used through the day. To do so or worsening pain at night can result from ongoing tissue damage and development of tolerance to the prescribed medicine. 6. Please allow 2-3 days to process refills. Prescriptions will not be mailed but must be picked up at the office. FOLLOW UP VISIT: Keep your scheduled follow-up appointment. Any questions, please call the office at . Pending Studies at Discharge: No Stand-Alone Forms: [employer], Smoking Cessation Medications and DC Order Prescriptions: New tramadol 50 mg tablet 50 mg PO Q6H PRN (Reason: pain, moderate) Qty: 30 0RF oxycodone 5 mg tablet 5 mg PO Q6H PRN (Reason: pain) Qty: 30 0RF Rx Instructions: Oxycodone for severe pain tramadol for moderate pain Continued gabapentin 300 mg capsule 0 mg PO HS Rx Instructions: Has not been taking celecoxib 100 mg capsule 0 mg PO BID Rx Instructions: Has not been taking benzonatate 100 mg capsule 100 mg PO TID PRN (Reason: Cough) albuterol sulfate 90 mcg/actuation HFA aerosol inhaler 2 puff inhalation Q6H PRN (Reason: sob) ondansetron HCl 4 mg tablet 4 mg PO Q6H PRN (Reason: nausea and vomiting) Discharge Orders: Discharge Order (Routine); Ordered 04/21/25 Ordered By: Amol Messina Admission Data Admit Date/Time: 04/18/25 11:37 Attending Provider: Amol Messina Admit Provider: Amol Messina Primary Care Provider: Jackson Stahl Other Providers: Gris Swartz
--- NOTE | 2025-04-21 12:04 | Hospitalist Progress Note ---
Date of Service April 21, 2025 Assessment & Plan (1) S/P spinal surgery: Plan: #S/P decompression and fusion L3-L5 by Dr Messina on 04/18 Plan Pain control Wound management per ortho PT/OT as appropriate DVT prophylaxis per ortho Incentive spirometry No medical contraindication to discharge today #Anemia -Hgb 11.6 from 13.8 on admission -Acute blood loss anemia secondary to surgery -Monitor counts. check Hgb today -Transfuse < 7 #Anxiety -Continue prn atarax and ativan I spent a total of 24 minutes coordinating, documenting, and providing care for this patient excluding time spent in the performance of separately billed services. This included personally reviewing all current laboratories and imaging studies, medical reconciliation, outpatient chart review and discussion with specialists (2) HTN (hypertension): Plan: No longer on medications Monitor BP (3) History of breast cancer: Plan: S/P chemo, radiation, partial mastectomy (4) Obesity: Plan: BMI: 38 Lifestyle recommendations DVT Prophylaxis SCDs Disposition per primary service Follows with Jovany Burgos PA-C for routine care Pt was seen and care coordinated with Dr Valdez. See addendum Thank you for this consultation. We will follow the patient with you during their hospital stay. You can reach a member of the [facility]ist Team 09/02 via [employer] Admission and Anticipated Discharge Date Admission Date: April 18, 2025 Subjective feeling well and has no complaints today. eager for dc home Physical Exam Physical Exam: Vitals and labs reviewed General: Well appearing, NAD Neck: Supple Lungs: no distress Abd: ND : Deffered MSK: Full ROM. No obvious deformities JAYSHREE drain Ext: No Edema cyanosis Skin: Warm, Dry Neuro: AOx3 No focal deficits. Psych: Normal Mood Results & Data Results & Data Vital Signs (Past 12 Hours) Vital Signs Temp Pulse Resp BP Pulse Ox O2 Del Method 04/21/25 07:07 36.7 C 56 L 16 136/79 95 Room Air
== END 2025-04-21 12:26 | disposition home or self-care (01) | DRG 427 ==
LOC: ASU 07:19 → 3N 11:37 → INTOOBSV 11:37